=== PATIENT | male | born 1945 | race Caucasian/White ===

== ENCOUNTER 2017-09-21 05:51 | Day surgery (SDC) | payer MEDICARE, OTHER ==
[2017-09-21] MEDS ORDERED: DIPRIVAN 200 MG/20 ML IV ONE (05:52)
[2017-09-21] MEDS ORDERED: Lactated Ringers 1,000 ML IV SCH (07:00)
[2017-09-21 08:41] VITALS: O2SAT 96
[2017-09-21 08:42] VITALS: BP 155/87; PULSE 56
--- NOTE | 2017-09-21 10:21 | OP ---
SURGERY DATE/TIME: 09/21/201719 PREOPERATIVE DIAGNOSES: 1) Gastroesophageal reflux disease. 2) History of colon polyps. POSTOPERATIVE DIAGNOSES: 1) Hiatal hernia. 2) Gastric fundal gland polyp. 3) Mild gastritis. 4) Normal colon. PROCEDURES: 1) Esophagogastroduodenoscopy with cold biopsy. 2) Colonoscopy. SURGEON: Dr. Mancia. ANESTHESIA: Medications were given by the anesthesia department. BRIEF HISTORY: The patient is a 72 year old white male patient presenting now for endoscopic evaluation. He reports he has been having problems reflux. He does take NSAID's as well as proton pump inhibitor on a regular basis as well as multiple [id number] nutritional supplements. He was felt the need to have endoscopic evaluation. He was appraised of the risks of the procedure including the risk of perforation, phlebitis, untoward reaction to medication, bleeding and missed lesions. The patient verbalized his understanding and desired to have the procedure performed. DESCRIPTION OF PROCEDURE: The patient was given the medications by the anesthesia department. He had continuous pulse oximetry, ECG monitoring, intermittent blood pressure monitoring and tidal CO2 monitoring during the examination. A bite block was placed. The flexible Olympus gastroscope was used to intubate the oropharynx. A view of the larynx was obtained and this was normal. The scope was easily introduced in the esophagus which appeared to be normal to the gastroesophageal junction where there appeared to be a fairly large hiatal hernia. The scope was then reduced into the stomach where gastric rugal folds were seen that distended nicely with insufflation of air. There was also noted to be a fairly large number of what appeared to be gastric fundal gland polyps. The scope was passed along the greater curvature of the stomach to the antrum. The pylorus encountered and intubated. Duodenum inspected and found to be normal. The scope is withdrawn towards the stomach. Again, a retroflex view of the lesser curvature, fundus and cardia regions of the stomach. Again a firm presence of the right hiatal hernia. The scope was then redirected towards the antrum and biopsies were obtained to rule out the presence of Helicobacter pylori-type organisms. The scope was then removed from the patient. Next, a digital rectal exam was performed and revealed normal anal sphincter tone and no masses and normal prostate. The flexible Olympus pediatric colonoscope was used to intubate the rectum. A view of the colon was developed sequentially to the cecum. Upon insertion and withdrawal, including a retroflex view in the rectum, no mucosal lesions encountered. The scope was removed from the patient who tolerated the procedure well and was sent back to OP recovery in good condition. The prep was noted to be fair.
== END 2017-09-21 08:59 | disposition home or self-care (01) ==
LOC: SDC 05:51
PROVIDERS: ATTEND Family Medicine
DX: K21.9 Gastro-esophageal reflux disease without esophagitis (principal); Z86.010 Personal history of colon polyps; K44.9 Diaphragmatic hernia without obstruction or gangrene; K31.7 Polyp of stomach and duodenum; K29.60 Other gastritis without bleeding
CPT/HCPCS: 99100; J2704